=== PATIENT | female | born 1950 | race Caucasian/White ===

== ENCOUNTER 2019-06-26 01:04 | Emergency (ER) | payer MEDICARE, OTHER, SELFPAY ==
[2019-06-26 01:05] VITALS: BP 218/96; PULSE 79; RESP 20; TEMP 36.9; O2SAT 96; BMI 33.8
--- NOTE | 2019-06-26 01:23 | EKG12_ITS ---
Test Reason : HTN Blood Pressure : / mmHG Vent. Rate : 064 BPM Atrial Rate : 064 BPM P-R Int : 168 ms QRS Dur : 086 ms QT Int : 480 ms P-R-T Axes : 033 -07 -07 degrees QTc Int : 495 ms Normal sinus rhythm Moderate voltage criteria for LVH, may be normal variant Nonspecific ST abnormality Prolonged QT Abnormal ECG Confirmed by CUONG SOLORZANO, CRISTOPHER ([id number]), film or videotape editor AYAD LIM ([id number]) on 06/28/2019 1:49:13 PM Referred By: MANDY Confirmed By:KT HUTCHINS MD
--- NOTE | 2019-06-26 01:23 | CT_ITS ---
STUDY: CT BRAIN WITHOUT CONTRAST REASON FOR EXAM: Female, 68 years old. Headache and elevated blood pressure x2 days. History of hypothyroidism, hypertension. RADIATION DOSAGE (If Supplied By Facility): CTDIvol = ( 44.99 ) mGy, DLP = ( 762.36 ) mGycm TECHNIQUE: Transaxial CT imaging of the brain was performed without administration of intravenous contrast material. Individualized dose optimization techniques were used for this CT. COMPARISON: No relevant priors. FINDINGS: Normal soft tissue structures. Normal calvarium. Normal size ventricles and extra-axial spaces for the patient's age. There are areas of decreased attenuation within the white matter tracts of the supratentorial brain, consistent with microvascular disease changes. Normal basal ganglia and thalami. Normal brainstem. Normal cerebellum. There is no intracranial hemorrhage. There are no findings of an acute ischemic infarction. Normal visualized paranasal sinuses. The bilateral mastoid air cells are clear. Mild arteriosclerosis of the carotid and vertebral arteries. CT/Brain/Head without Contrast IMPRESSION: Mild involutional changes of white matter. There is no acute intracranial pathology. Electronically Signed: Dana Momin MD at 2:13 EDT , Service support ,
--- NOTE | 2019-06-26 01:23 | ED.VIS.GEN ---
History of Present Illness Chief Complaint: Hypertension Narrative: Patient is a 68-year-old female who presents with elevated blood pressure. She notes her blood pressure has been running high for about 2 days. She had a moderate headache earlier and only complains of mild discomfort currently. No dizziness. No chest pain. No shortness of breath. No recent illness otherwise such as nausea vomiting diarrhea. She has previously been diagnosed with hypertension and prescribed lisinopril hydrochlorothiazide however has been noncompliant. Past Medical History - Allergies and Home Meds Allergies/Adverse Reactions: Allergies No Known Allergies Allergy (Verified 06/26/19 01:11) Primary Care Physician: NOT,DEFINED [NON-STAFF] - Past Medical History: - - Hypertension-noncompliant with medication Smoking Status: Former smoker Review of Systems All systems negative except as indicated General: Denies: Fever Cardiovascular: Denies: Chest pain Respiratory: Denies: Dyspnea Gastrointestinal: Denies: Vomiting, Diarrhea Neurological: Reports: Headache Physical Exam Vital Signs/Narrative: Vital Signs Temp Pulse Resp BP Pulse Ox 06/26/19 01:05 98.4 F 79 20 H 218/96 H 96 Inital Vital Signs reviewed: Yes General: Well nourished Head: Normocephalic Eyes: EOMI ENT: Moist mucous membranes Neck: Supple Cardiovascular: Regular rate, Regular rhythm Respiratory: No distress, CTA bilaterally Extremities: No edema Skin: Normal color Neurological: Alert, Oriented x3, Normal Strength, Normal Sensation Psychological: Normal affect Diagnostic/Tx/Re-eval Impressions Brain CT 06/26/19 01:23 IMPRESSION: Mild involutional changes of white matter. There is no acute intracranial pathology. Electronically Signed: Dana Momin MD at 2:13 EDT , Service support , 06/26/19 01:23 CT Head [Brain/Head without Contrast] [CT] Stat Laboratory Results 06/26/19 01:23 Sodium 140 Potassium 3.6 Chloride 104 Carbon Dioxide 31.0 Anion Gap 5 BUN 21 H Creatinine 0.79 Estim Creat Clear Calc 40.63 Est GFR (MDRD) Af Amer 93 Est GFR (MDRD) Non-Af 76 BUN/Creatinine Ratio 26.5 H Glucose 104 Calcium 9.5 - Medical Decision Making EKG shows sinus rhythm with moderate criteria for LVH. She has some nonspecific T wave changes. Isoelectric ST segments. At this point she does not have evidence of acute endorgan dysfunction. She has no symptoms to suggest cardiac ischemia and she does not have findings of acute ischemia on her EKG. Renal function is normal, CT the head shows no cerebral edema or hemorrhage. She was advised to restart her medications. I advised that it would take some time before this could bring her blood pressure into target range and would not immediately bring her blood pressure to normal with only a day or 2 of medications. She was advised to contact her primary care physician and have her blood pressure rechecked next week. She understands to return for new or worsening symptoms and was instructed on specific signs and symptoms to monitor for. ED Disposition - Plan for ED Patient: Disposition: LEFT WITHOUT BEING SEEN Diagnosis: Hypertension, Noncompliance with medication regimen Instructions: HYPERTENSION, Established Referrals: NOT,DEFINED [NON-STAFF] - Additional Instructions: Take all medications as prescribed, follow-up with your primary care physician next week. Return for any new or worsening symptoms including but not limited to chest pain, difficulty breathing, severe headache, swelling of the legs.
--- NOTE | 2019-06-26 01:35 | ED.RN ---
NO OLD EKGS IN MUSE
[2019-06-26 01:45] LABS: Anion Gap 5 (5-15); BUN 21 mg/dL (7-18); BUN/Creat Ratio 26.5 RATIO (10-20); Calcium,Total 9.5 mg/dL (8.5-10.1); Chloride 104 mmol/L (98-107); Creatinine, Serum 0.79 mg/dL (0.55-1.02); EST Glomerular Filtration Rate 76 mL/min (>60); Est Glom Filt Rate - Afr Amer 93 mL/min (>60); Estimated Creatinine Clearance 40.63 ml/min; Glucose 104 mg/dL (74-106); Potassium 3.6 mmol/L (3.5-5.1); Sodium Level 140 mmol/L (136-145)
[2019-06-26 02:10] VITALS: BP 208/83; PULSE 64; RESP 15; O2SAT 97
[2019-06-26 02:23] VITALS: PULSE 67; RESP 19; O2SAT 97
[2019-06-26 02:26] VITALS: BP 182/85; PULSE 67; RESP 20; O2SAT 98
== END 2019-06-26 02:38 | disposition home or self-care (01) ==
PROVIDERS: Emergency Provider Emergency Medicine; Family Provider Family Medicine; PCP Family Medicine
DX: I10 Essential (primary) hypertension (principal); Z91.14 Patient's other noncompliance with medication regimen; Z87.891 Personal history of nicotine dependence
CPT/HCPCS: 70450; 80048; 93005; 99282; A4216